=== PATIENT | female | born 1975 | race Caucasian/White ===

== ENCOUNTER 2022-06-15 03:46 | Outpatient (CLI) | payer OTHER ==
[~2022-06-15 03:46] MED LIST: POLY119PG PO
== END 2022-06-15 23:00 | disposition home or self-care (01) ==
LOC: LAB 03:46
PROVIDERS: ATTEND Obstetrics & Gynecology
DX: Z20.828 Contact with and (suspected) exposure to other viral communicable diseases (principal); Z20.818 Contact with and (suspected) exposure to other bacterial communicable diseases